=== PATIENT | male | born 1995 | race Caucasian/White ===

== ENCOUNTER 2019-06-06 07:44 | Day surgery (SDC) | payer OTHER ==
[~2019-06-06] VITALS: Ht 182.9 cm; Wt 84.4 kg
[~2019-06-06 07:44] MED LIST: KETOROLAC 60 MG/2 ML VIAL (J1885) As Ordered ONE; LIDOCAINE 1% MDV 20ML VIAL SQ PRN; LIDOCAINE 2% INJ 100 MG/5 ML SDV (FOR ANES.) As Ordered ONE; LR 1,000 ML IV ONE; ONDANSETRON 4MG/2ML VIAL (J2405) As Ordered ONE; ROCURONIUM BROMIDE 50 MG/5 ML VIAL As Ordered ONE; dexameTHASONE 4 MG/ML 1ML VIAL (J1100) As Ordered ONE; propofoL 200 MG/20 ML VIAL As Ordered ONE
[2019-06-06] MEDS ORDERED: BUPIVACAINE HCL 0.25% 30 ML VIAL As Ordered ONE (07:57)
[2019-06-06] MEDS ORDERED: fentaNYL 250 MCG/5 ML INJECTION (J3010) As Ordered ONE (09:13)
[2019-06-06] MEDS ORDERED: MIDAZOLAM INJ 2 MG/2 ML VIAL (J2250) As Ordered ONE (09:14)
[2019-06-06] MEDS ORDERED: ROCURONIUM BROMIDE 50 MG/5 ML VIAL As Ordered ONE (10:26)
[2019-06-06] MEDS ORDERED: SUGAMMADEX SODIUM 500 MG/5 ML VIAL (BRIDION) As Ordered ONE (10:28)
[2019-06-06] MEDS: fentaNYL 100 MCG/2 ML INJECTION (J3010) IV PRN ×4 (11:57→12:18)
[2019-06-06] MEDS ORDERED: fentaNYL 100 MCG/2 ML INJECTION (J3010) As Ordered ONE (11:57)
[2019-06-06] MEDS ORDERED: LR 1,000 ML IV SCH (12:00)
[2019-06-06] MEDS ORDERED: PERCOCET 5MG/325MG TAB PO PRN (12:00)
[2019-06-06] MEDS ORDERED: ONDANSETRON 4MG/2ML VIAL (J2405) IV PRN (12:00)
[2019-06-06] MEDS ORDERED: METOCLOPRAMIDE INJ 10MG/2ML VIAL (J2765) IV PRN (12:00)
[2019-06-06] MEDS ORDERED: IBUPROFEN 600 MG TAB PO PRN (12:15)
[2019-06-06] MEDS ORDERED: NORCO, ANEXSIA 5/325MG TABLET (HYDROcodone/ACETAMINOPHEN) PO PRN (12:15)
[2019-06-06] MEDS ORDERED: ACETAMINOPHEN TAB 650MG DOSE (2X325MG) PO PRN (12:15)
[2019-06-06 12:47] VITALS: BP 119/56
--- NOTE | 2019-06-07 12:41 | RO ---
DATE OF PROCEDURE: 06/06/2019 PREOPERATIVE DIAGNOSIS: Right inguinal hernia. POSTOPERATIVE DIAGNOSIS: Indirect right inguinal hernia. PROCEDURE PERFORMED: A robotic-assisted laparoscopic right inguinal herniorrhaphy with mesh. The mesh utilized was a Bard 3DMax light mesh in size large for the right side. Reference code number is [id number] and lot number [id number]. SURGEON: Dr. Woods CAE ENGINEER: IQRA Hernandez who was important in management of the general control of the robot, placement of the trocars, exchange of instruments and passage of sutures and mesh, and closure of the incisions. ANESTHESIA: General. 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 He is now for a robotic-assisted laparoscopic right inguinal herniorrhaphy. OPERATIVE PROCEDURE: The patient was brought to the operating room and placed on the table in a supine position. He was placed under general endotracheal anesthesia. The patient's abdomen, groins, and genitalia were prepped and draped in a sterile fashion. 0.25% Marcaine was infiltrated at each the trocar sites as needed. Initially a short transverse incision was made approximately 4-5 cm above the umbilicus. This was deepened through the subcutaneous tissues. A Veress needle was inserted and after a positive hanging drop test the abdomen was insufflated with carbon dioxide gas. An 8 mm robotic port was placed over the 5 mm scope and this was advanced through the abdominal wall without difficulty. Initial examination showed a definite inguinal hernia defect, which appeared consistent with an indirect hernia. There was no sign of hernia on the left. A second port was placed in the left upper quadrant approximately 10 cm lateral to the first and a third port was placed in the right upper quadrant again approximately 10 cm to the right of the initial port. The patient was tilted into 15 degrees of Trendelenburg. The robotic console was brought into position and the camera port was docked. Targeting took place and the additional robotic arms were then also docked. A bipolar grasper and cauterizing scissors were then inserted. I then moved to the control console. Using the scissors, an arcuate incision was made in the peritoneum beginning at the medial umbilical ligament and extending laterally and then inferiorly toward the anterior-superior iliac spine. A preperitoneal space was developed using a combination of cautery and sharp and blunt dissection. The hernia sac was carefully dissected free from the other cord structures and inverted into the abdomen. Blood loss was minimal. The fascia of Benjy's ligament was identified medially. The origin of the rectus muscle was noted. Once the preperitoneal space had been adequately opened, the Bard 3DMax light mesh, large, for the right side was inserted into the abdomen along with a #2-0 Vicryl suture. The mesh was placed over the inner aspect of the inguinal floor. This was tacked to the fascia of Coopers ligament medially and a second suture was placed in the upper outer edge of the mesh to fix this in position. The pressure within the abdomen was reduced to 10 mmHg. A #2-0 V-Loc suture was begun laterally and sutured across the lateral and superior aspect of the peritoneal flap. The patient was gradually brought down out of his Trendelenburg position in several stages. As I approached the medial end of the peritoneal closure the pressure in the abdomen was reduced to 6 mmHg. The closure was completed. The robotic instruments were removed and the robot was undocked. The patient was returned to a flat position. Gas was deflated from the abdomen. The trocars were removed. The skin incisions were closed with buried #4-0 Vicryl sutures and Steri-Strips. Light dressings were applied. The patient tolerated the procedure well without apparent complication. He was awakened in the operating room, extubated and moved to the recovery room in stable condition. VALENTINO
== END 2019-06-06 15:13 | disposition home or self-care (01) ==
LOC: M SDC 07:44
PROVIDERS: ATTEND Surgery
DX: K40.90 Unilateral inguinal hernia, without obstruction or gangrene, not specified as recurrent (principal)
CPT/HCPCS: 49650; C1781; J1100; J1885; J2250; J2405; J3010

== ENCOUNTER → 2020-04-16 | Outpatient (CLI) | payer SELFPAY | LOC: M LABSMTC 18:36 | PROVIDERS: ATTEND Pediatrics | DX: Z11.59 Encounter for screening for other viral diseases (principal) ==

== ENCOUNTER → 2020-04-24 | Outpatient (CLI) | payer SELFPAY | LOC: M LABSMTC 14:14 | PROVIDERS: ATTEND Pediatrics | DX: Z20.828 Contact with and (suspected) exposure to other viral communicable diseases (principal) ==

== ENCOUNTER → 2020-05-08 | Outpatient (CLI) | payer SELFPAY | LOC: M LABSMTC 12:26 | PROVIDERS: ATTEND Pediatrics | DX: Z20.828 Contact with and (suspected) exposure to other viral communicable diseases (principal) ==

== ENCOUNTER → 2020-12-09 | Outpatient (REF) | payer OTHER | LOC: M LAB REF 17:19 | PROVIDERS: ATTEND Ophthalmology | DX: D31.01 Benign neoplasm of right conjunctiva (principal) ==